=== PATIENT | female | born 1975 | race Caucasian/White ===

== ENCOUNTER → 2020-11-17 10:17 | Outpatient (BNVA) | payer MEDICAID, SELFPAY | PROVIDERS: Family Provider Family Medicine; PCP Nurse Practitioner Family; Visit Provider Nurse Practitioner Family | DX: I10 Essential (primary) hypertension (principal); Z13.6 Encounter for screening for cardiovascular disorders; Z79.899 Other long term (current) drug therapy; E55.9 Vitamin D deficiency, unspecified; G40.909 Epilepsy, unspecified, not intractable, without status epilepticus; D51.8 Other vitamin B12 deficiency anemias; K21.9 Gastro-esophageal reflux disease without esophagitis | CPT/HCPCS: 80053; 80061; 80177; 81003; 82306; 82607; 82746; 83036; 84439; 84443; 84481; 85025 ==

== ENCOUNTER → 2020-12-15 10:13 | Outpatient (BNVA) | payer MEDICAID, SELFPAY | PROVIDERS: Family Provider Family Medicine; PCP Nurse Practitioner Family; Visit Provider Nurse Practitioner Family | DX: Z13.6 Encounter for screening for cardiovascular disorders (principal); K21.9 Gastro-esophageal reflux disease without esophagitis; M25.512 Pain in left shoulder; G89.29 Other chronic pain | CPT/HCPCS: 73030; 80053 ==

== ENCOUNTER 2021-05-19 13:13 | Outpatient (CLI) | payer MEDICAID, SELFPAY ==
--- NOTE | 2021-05-19 11:30 | CT_ITS ---
WS: [id number] CT LEFT SHOULDER, NONCONTRAST. HISTORY: M25.512 - Pain in left shoulder Technique: All CT scans at [facility] use at least one of these dose optimization techniques: automated exposure control; mA and/or kV adjustment per patient size (includes targeted exams where dose is matched to clinical indication); or iterative reconstruction. DLP: 716.46 mGycm COMPARISON: None available. No fractures or dislocations. Normal alignment of the AC joint and glenohumeral joint. No significant muscle atrophy involving the rotator cuff. Soft tissues and osseous structures are negative. The vis ualized adjacent lung is clear. Mild pleural thickening [address]/CT shoulder LT wo con* [id number] IMPRESSION: 1. No LEFT shoulder fracture or soft tissue abnormality. No significant degene rative changes. 2. Mild LEFT apical soft tissue thickening probably related to smoking history and fibrosis.
== END 2021-05-19 13:14 | disposition home or self-care (01) ==
PROVIDERS: PCP Nurse Practitioner Family; Visit Provider Nurse Practitioner Family
DX: M25.512 Pain in left shoulder (principal); G89.29 Other chronic pain
CPT/HCPCS: 73200

== ENCOUNTER → 2021-12-23 10:19 | Outpatient (BNVA) | payer MEDICAID, SELFPAY | PROVIDERS: PCP Nurse Practitioner Family; Visit Provider Nurse Practitioner | DX: I10 Essential (primary) hypertension (principal); E78.2 Mixed hyperlipidemia; Z79.899 Other long term (current) drug therapy; E55.9 Vitamin D deficiency, unspecified; Z13.6 Encounter for screening for cardiovascular disorders | CPT/HCPCS: 80053; 80061; 81003; 82306; 83036; 84443; 85025 ==

== ENCOUNTER → 2022-12-15 15:06 | Outpatient (BNVA) | payer MEDICAID, SELFPAY | PROVIDERS: PCP Nurse Practitioner; Visit Provider Nurse Practitioner | DX: E78.2 Mixed hyperlipidemia (principal); G40.909 Epilepsy, unspecified, not intractable, without status epilepticus; I10 Essential (primary) hypertension; E55.9 Vitamin D deficiency, unspecified; K21.9 Gastro-esophageal reflux disease without esophagitis | CPT/HCPCS: 80053; 80061; 82306; 84443; 85025 ==

== ENCOUNTER → 2024-02-28 09:32 | Outpatient (BNVA) | payer MEDICAID, SELFPAY | PROVIDERS: PCP Nurse Practitioner Family; Visit Provider Nurse Practitioner Family | DX: I10 Essential (primary) hypertension (principal); D51.9 Vitamin B12 deficiency anemia, unspecified; G40.909 Epilepsy, unspecified, not intractable, without status epilepticus; Z79.899 Other long term (current) drug therapy | CPT/HCPCS: 80053; 85025 ==

== ENCOUNTER → 2025-03-28 15:22 | Outpatient (BNVA) | payer MEDICAID, SELFPAY | PROVIDERS: PCP Nurse Practitioner Family; Visit Provider Nurse Practitioner Family | DX: D51.9 Vitamin B12 deficiency anemia, unspecified (principal); Z13.6 Encounter for screening for cardiovascular disorders; Z79.899 Other long term (current) drug therapy; I10 Essential (primary) hypertension; E55.9 Vitamin D deficiency, unspecified; E78.2 Mixed hyperlipidemia | CPT/HCPCS: 80053; 80061; 81003; 82306; 82607; 82746; 83036; 83921; 84443; 85025 ==